=== PATIENT | female | born 1970 | race Caucasian/White ===

== ENCOUNTER 2021-04-06 12:42 | Emergency (ER) | payer OTHER ==
[~2021-04-06] VITALS: Ht 160 cm; Wt 48.1 kg
[~2021-04-06 12:42] MED LIST: ATORVASTATIN CA80 MG PO; BACLOFEN 10MG T10 MG PO; BACTRIM DS TAB1 EACH PO; BUSPIRONE HCL10 MG PO; GABAPENTIN400 MG PO; IBUPROFEN800 MG PO; ILOTYCIN1 GM OD; JARDIANCE25 MG PO; KEFLEX250 MG PO; LEVOTHYROXINE112 MCG PO; METFORMIN HCL1000 MG PO; NORCO 5-325 TA1 EACH PO; OMEPRAZOLE 20MG20 MG PO; ONE TOUCH ULT1 STRIP SUBD; PAROXETINE HCL40 MG PO; TRESIBA FL200 UNIT/1 SUBD
[2021-04-06] MEDS ORDERED: VENLAFAXINE HCL75 M1 PO (13:09)
[2021-04-06 13:27] LABS: BILIRUBIN NEGATIVE (NEGATIVE); BLOOD NEGATIVE Ery/uL (NEGATIVE); CLARITY CLEAR (CLEAR); COLOR YELLOW (YELLOW); GLUCOSE (U) 3+ mg/dL (NORMAL); LEUKOCYTES NEGATIVE Leu/uL (NEGATIVE); NITRITE NEGATIVE (NEGATIVE); PROTEIN NEGATIVE (NEGATIVE); UROBILINOGEN 0.2 mg/dL (0.2-1.0)
[2021-04-06 13:31] LABS: AMPHETAMINES NEGATIVE (NEGATIVE); BARBITURATES NEGATIVE (NEGATIVE); ECSTASY (MDMA) NEGATIVE (NEGATIVE); MARIJUANA (THC) NEGATIVE (NEGATIVE); METHADONE NEGATIVE (NEGATIVE); OPIATES NEGATIVE (NEGATIVE); OXYCODONE NEGATIVE (NEGATIVE)
[2021-04-06 13:40] LABS: BASOPHIL 1.4 % (0-2); EOSINOPHIL 4.6 % (0-5); HCT 38.1 % (37.0-47.0); HGB 12.2 g/dl (12.5-16.0); MCH 27.7 pg (25.0-31.0); MCV 86.6 fL (78.0-100.0); MPV 8.6 fL (6.0-9.5); NEUTROPHIL 55.9 % (41-80); NRBC 0; PLT 316 K/uL (150-400); RDW 16.1 % (11.5-14.0); WBC 7.6 K/uL (4.0-10.5)
[2021-04-06 14:25] LABS: ALBUMIN 3.7 g/dL (3.4-5.0); BILIRUBIN - TOTAL 0.3 mg/dL (0.2-1.0); BUN/CREAT RATIO (CALC) 37.3 RATIO; CREATININE 0.51 mg/dL (0.51-0.95); FOLIC ACID (SERUM) 19.3 ng/mL (8.6-58.9); GLOBULIN (CALCULATION) 4.1 g/dL; POTASSIUM 4.5 mmol/L (3.5-5.1); TOTAL PROTEIN 7.8 g/dL (6.4-8.2); VITAMIN D (25-OH) 38.8 ng/mL (30.0-100.0)
== END 2021-04-06 15:15 | disposition home or self-care (01) ==
LOC: FER 12:42
PROVIDERS: Internal Medicine
DX: E86.0 Dehydration (principal); E11.65 Type 2 diabetes mellitus with hyperglycemia; J44.9 Chronic obstructive pulmonary disease, unspecified; F17.210 Nicotine dependence, cigarettes, uncomplicated; Z79.84 Long term (current) use of oral hypoglycemic drugs; Z88.6 Allergy status to analgesic agent
CPT/HCPCS: 36415; 70450; 71045; 80053; 80061; 80305; 81003; 82306; 82607; 82746; 84443; 85025